=== PATIENT | male | born 1955 | race Caucasian/White ===

== ENCOUNTER → 2019-02-11 | Outpatient (CLI) | payer BC ==
--- NOTE | 2019-02-11 14:04 | RADIOLOGY REPORT (SQ) ---
EXAM DESCRIPTION: PETER SWALLOW COMPLETED DATE/TIME: 02/11/2019 8:41 am REASON FOR STUDY: R13.10 DYSPHAGIA, UNSPECIFIED R13.10 DYSPHAGIA, UNSPECIFIED COMPARISON: None. TECHNIQUE: Videofluoroscopic swallowing examination was performed in conjunction with speech patholo gy. Videofluoroscopic imaging was obtained and reviewed and these are the findings: RADIATION DOSE: Fluoro time 2.06 minutes 1 images saved to PACS. LIMITATIONS: None FINDINGS: The patient was brought into the fluoro room and placed upright on a modified barium swall ow chair. The patient was then given multiple consistencies mixed with barium to swallow under live fluoroscopic video guidance. According to the Speech Pathologist there was no penetration or aspirat ion. Note is made of bulky anterior osteophyte formations from C2 to C5. These do not appear to cau se issues with swallowing. Please refer to the speech pathology report for further details. IMPRESSION: NO EVIDENCE OF PENETRATION OR ASPIRATION. PLEASE SEE SPEECH PATHOLOGIST REPORT FOR OTHER FINDINGS AND RECOMMENDATIONS. COMMENT: None Quality ID [id number]: Final reports for procedures using fluoroscopy that document radiation exposure leti siomara, or exposure time and number of fluorographic images (if radiation exposure indices are not avail able) TECHNICAL DOCUMENTATION: JOB ID: [id number] [employer]- All Rights Reserved Reading location - IP/workstation name: [id number]
--- NOTE | 2019-02-11 21:21 | ST Modified Barium Swallow ---
Recommendation - Recommendations Recommendations: No aspiration or penetration identified during testing despite challenging with consecutive sips of liquid and varied consistencies. Recommend patient continue with regular solids and thin liquid diet with esophageal precautions (alternating solids and liquids) to reduce globus sensation with solids. No speech therapy intervention indicated at this time. Medical Diagnoses - Medical Diagnoses Other Medical Diagnoses/Co-Morbidities: Reflux, Allergies - ICD-10 Tx Diagnosis Coding (1) Oropharyngeal dysphagia ICD-10 Code(s): R13.12 - DYSPHAGIA, OROPHARYNGEAL PHASE ST Modified Barium Swallow - General Date: 02/11/19 Referring Physician: Dr. Hutchinson Risks/Precautions: None Reason for Referral: Patients chief complaint is choking with liquids - History History obtained from: Patient - Per Patient: Patient presents with order for MBSS from Dr. Hutchinson, patients ENT. Patients chief complaint is choking with liquids as a result of breathing during swallowing secondary to seasonal allergies/post nasal drip. Further, patient reports a globus sensation only when eating nuts. Per Patient recent scope revealed acid reflux. Medications include flonaze (recent start), claritin, probiotic, valsartan, montelukast, and pantoprazole acid utility service worker. Medications: Medications include flonaze (recent start), claritin, probiotic, valsartan, montelukast, and pantoprazole acid utility service worker. Allergies: seasonal and food (rhubarb) - Functional Status Prior Functional Status: INDEPENDENT: ADL - independent for all - Subjective Patient/caregiver goal(s): r/o aspiration Cognitive-Linguistic Function: WNL Speech Intelligibility: WNL Current Nutritional Means: PO Current PO diet: Regular Current symptoms: Coughing - with liquids when experiencing post nasal drip, c/o Globus sensation Pain: 0/5 - Objective Assessment: Upright - Food Trials Used Food trials used: Thin liquids, Pureed, Regular The patient: Was Able to Self Feed, via cup, via spoon - Oral-Motor Skills Dentition: Full Laryngeal Function: clear voicing - Assessment Oral prep: Normal Labial closure: Adequate Leakage: None Mastication: Adequate Lingual Movement: Normal Oral stage: Age appropriate Oral Stage: Sufficient oral stage indicated by adequate manipulation, transfer, and clearance of oral cavity for all textures trialed - Pharyngeal Stage Initiation of Pharyngeal Stage Reflex: Normal Decreased laryngeal elevation: No Reduced Velopharyngeal Closure: no Reduced pressure generation: No reduced tongue-based retraction: No Pre-swallow pooling in valleculae: None Pre-Swallow pooling in pyriforms: None Reduced Thyro-Hyoid approximation: No Reduced epiglottic excursion: No Reduced pharyngeal peristalsis/contraction: No Post-swallow residulas vallecular: Mild Post-Swallow residuals in pyriforms: None Post-Swallow Residuals: no residuals Reduced Cricopharyngeal opening: No - Esophageal Stage Cricopharyngeal Function: Normal Upper Esophageal Transit: Normal Esophageal stasis/dysmotility: No Cervical Osteophytes noted: Yes - Possible osteophytes suspected along cervical spine, but did not impact clearance of trials. - Fall Risk Assessment Medications/Conditions that increase fall risks include: Antidepressants, sedatives, anti-arrhythmic, diuretic, benzodiazipenes, neuroleptics. BP regulation problems, cardiac problems, balance or gait deficits, neurological problems. Is patient considered at risk for falls: no Fall Risk Actions Taken: No action needed - Behavioral Observations During evaluation process patient: was pleasant, was cooperative, able to answer questions, provided medical history Mental Status: Alert & Oriented X3 - Treatment / Educational Needs: Treatment/Education Needs: Treatment consisted of patient education on the role of the Speech Pathologist. Patient's plan of care and golas were communicated as well as scheduling and attendance policies. Recommendations for initial home program were shared. Patient demonstrated understanding and verbalized agreement. Initial home program recommendations: Suggested alternating solids and liquids to aid in globus sensation with peanuts. Recommended stalling eating/drinking when experiencing increased drainage - Impression/Summary Laryngeal Penetration: No Tracheal Aspiration: no Patient presents with: Normal swallow at eval Risk of Aspiration: Mild Risk of nutritional compromise: None Evaluation and Findings: No aspiration or penetration identified during testing despite challenging with consecutive sips of liquid and varied consistencies. Adequate laryngeal excursion, base of tongue retraction, and pharyngeal peristalsis for all consistencies. Patient noted to clear throat/cough during reported episodes of post nasal drip; however, throat clear/cough occurred in the absence of airway compromise. Recommend patient continue with regular solids and thin liquid diet with esophageal precautions (alternating solids and liquids) to reduce globus sensation with solids. No speech therapy intervention indicated at this time. - Recommendations NPO: no Solid diet recommendations: Regular Liquid Diet Modification: Thin Strict aspiration precautions: No Pt/Family education and followup with MD: No Dysphagia therapy with ASSOCIATE DIRECTOR REGULATORY AFFAIRS: no Recommended techniques: Alternate Bites/Sips Supervision: Independent Information, Precautions and Recommendations: Patient (Verbal) - Time Total Time: 26 - Plan of Care Strategies to optimize patient understanding include:: ongoing assessment of educational needs, implementation of educational strategies, and re-education. - - -: Thank you for the opportunity to work with this patient and his/her family. Should you have any questions about this patient's plan or progress, I can be reached at [phone].
== END ==
LOC: RAD 08:01
PROVIDERS: ATTEND Otolaryngology
DX: R13.10 Dysphagia, unspecified (principal)
CPT/HCPCS: 74230